=== PATIENT | male | born 2000 | race Caucasian/White ===

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

== ENCOUNTER 2019-07-04 15:53 | Emergency (ER) | payer MEDICAID ==
[~2019-07-04] VITALS: Ht 177.8 cm; Wt 65.3 kg
[2019-07-04 16:06] VITALS: Ht 177.8 cm; Wt 65.3 kg
[2019-07-04 16:20] VITALS: BP 133/81
== END 2019-07-04 16:20 | disposition home or self-care (01) ==
LOC: ED 15:53
DX: L03.114 Cellulitis of left upper limb (principal)